=== PATIENT | female | born 1935 | race Caucasian/White ===

== ENCOUNTER 2016-09-23 19:49 | Inpatient (IN) | payer MEDICARE ==
[~2016-09-23] VITALS: Ht 165.1 cm; Wt 71.0 kg
[~2016-09-23 19:49] MED LIST: ASPIRIN81 MG PO; BACTRIM DS1 TAB PO; BAYER ASPIRIN325 MG PO; BENADRYL25 MG PO; BENTYL10 MG PO; CEFEPIME IJ; CEFEPIME1 GM IV; CEFTIN500 MG PO; CELEBREX100 M1 PO; CELEBREX200 MG PO; CEPHALEXIN500 MG PO; CIPROFLOXACIN500 M1 PO; CIPROFLOXACN250 MG PO; CIPROFLOXACN500 MG PO; CLONIDINE0.1 MG PO; COLACE100 MG PO; CRANBERRY1 TA1 PO; DIPHENHYDRAM25 MG PO; ENABLEX15 MG PO; FERR SULFATE325 MG PO; GABAPENTIN300 MG PO; KEFLEX500 M1 PO; LEXAPRO10 MG PO; LISINOPRIL20 MG PO; MECLIZINE25 MG PO; MUCINEX600 MG PO; NITROFURANTN100 MG PO; NORCO1 TA1 PO; NYSTATIN100000 M4 TOP; OMEPRAZOLE40 MG PO; OSCAL 500/1 TAB PO; OXYBUTYNIN10 MG PO; OXYBUTYNIN5 M1 PO; OXYBUTYNIN5 MG PO; OXYCO/APAP1 TA5 PO; PANTOPRAZOLE SO40 MG PO; PHENERGAN12.5 MG/TA PO; PRILOSEC20 MG/CAP PO; PRILOSEC40 MG PO; SERTRALINE HCL50 MG PO; SUPER B COMPLEX1 CAP PO; SYNTHROID75 MCG PO; TORSEMIDE20 M1 PO; TOVIAZ4 MG PO; TRAMADOL HCL50 MG PO; VESICARE5 MG PO; WARFARIN4 MG PO; [UNRECOGNIZED DRUG - OTHER] IJ
[2016-09-23] MEDS ORDERED: CELECOXIB200 MG PO (20:14)
[2016-09-23 20:32] LABS: HEMATOCRIT 34.5 % (37.0-47.0); IMMATURE GRANULOCYTES 0.4 % (0.0-1.0); MEAN CELL VOLUME 89.4 fL CALC (80.0-100.0); MEAN CORPUSCULAR HGB 28.5 pG CALC (26.0-32.0); MEAN CORPUSCULAR HGB CONC 31.9 g/L CALC (32.0-36.0); NEUT# 4.56 thou/uL (2.00-7.15); RED BLOOD COUNT 3.86 mill/uL (4.20-5.60); RED CELL DISTRI WIDTH 13.6 % (11.5-15.5)
[2016-09-23 21:18] LABS: ALBUMIN 3.6 g/dL (3.2-5.0); ALKALINE PHOSPHATASE 120 u/l (38-126); ANION GAP 14 (6-22 (CALC)); BILIRUBIN, TOTAL 0.4 mg/dL (0.0-1.4); BUN 18 mg/dL (8-23); BUN/CREATININE RATIO 16 (12-20 (CALC)); CALCIUM 8.7 mg/dL (8.4-10.2); CARBON DIOXIDE 23 mmol/l (22-30); CHLORIDE 106 mmol/l (95-108); CREATININE 1.2 mg/dL (0.5-1.0); GFR 43 ML/MIN (>=60 (CALC)); GFR FOR AFR.AMER. 52 ML/MIN (>=60 (CALC)); GLUCOSE 106 mg/dL (82-115); POTASSIUM 4.3 mmol/l (3.5-5.1); SGOT/AST 19 u/l (9-36); SGPT/ALT 26 u/l (11-66); SODIUM 138 mmol/l (137-146); TOTAL PROTEIN 7.6 g/dL (6.3-8.2)
[2016-09-23 21:27] LABS: MYOGLOBIN 42 ng/mL (0 - 62)
[2016-09-23 22:20] LABS: URINE BLOOD DIPSTICK LARGE (NEGATIVE); URINE COLOR YELLOW; URINE GLUCOSE - DIPSTICK NEGATIVE (NEGATIVE); URINE KETONE TRACE mg/dL (NEGATIVE); URINE PROTEIN - DIPSTICK >=300 mg/dL (NEG-TRACE)
[2016-09-23 22:28] LABS: URINE BILIRUBIN - DIPSTICK SMALL (NEGATIVE); URINE CLARITY CLOUDY; URINE LEUK ESTERASE MODERATE (NEGATIVE); URINE NITRITE - DIPSTICK POSITIVE (Negative)
[2016-09-23 22:29] LABS: URINE BACTERIA MANY hpf; URINE RBC TNTC RBC/hpf (0-5); URINE SQUAMOUS EPITHELIAL CELL FEW EPI/hpf (0-FEW); URINE WBC TNTC WBC/hpf (0-5)
[2016-09-24 00:37] VITALS: BP 98/65
[2016-09-24 04:32] VITALS: BP 129/69
[2016-09-24 04:44] VITALS: BP 142/90
[2016-09-24 07:22] LABS: HEMATOCRIT 39.6 % (37.0-47.0); HEMOGLOBIN 12.2 g/dl (12.0-16.0); IMMATURE GRANULOCYTES 0.3 % (0.0-1.0); MEAN CELL VOLUME 91.7 fL CALC (80.0-100.0); MEAN CORPUSCULAR HGB 28.2 pG CALC (26.0-32.0); MEAN CORPUSCULAR HGB CONC 30.8 g/L CALC (32.0-36.0); NEUT# 3.67 thou/uL (2.00-7.15); RED BLOOD COUNT 4.32 mill/uL (4.20-5.60); RED CELL DISTRI WIDTH 13.6 % (11.5-15.5)
[2016-09-24 07:39] LABS: BILIRUBIN, TOTAL 0.6 mg/dL (0.0-1.4); CALCIUM 9.1 mg/dL (8.4-10.2); CREATININE 1.2 mg/dL (0.5-1.0); POTASSIUM 4.5 mmol/l (3.5-5.1); TOTAL PROTEIN 8.1 g/dL (6.3-8.2)
[2016-09-24 08:13] VITALS: BP 110/61
[2016-09-24 15:21] VITALS: BP 125/52
[2016-09-24 20:14] VITALS: BP 105/64
[2016-09-25 00:13] VITALS: BP 122/67
[2016-09-25 00:20] VITALS: BP 122/67
[2016-09-25 04:04] VITALS: BP 90/56
[2016-09-25 05:56] LABS: HEMATOCRIT 31.6 % (37.0-47.0); HEMOGLOBIN 10.1 g/dl (12.0-16.0); IMMATURE GRANULOCYTES 1.2 % (0.0-1.0); MEAN CELL VOLUME 89.3 fL CALC (80.0-100.0); MEAN CORPUSCULAR HGB 28.5 pG CALC (26.0-32.0); NEUT# 2.99 thou/uL (2.00-7.15); RED BLOOD COUNT 3.54 mill/uL (4.20-5.60); RED CELL DISTRI WIDTH 13.5 % (11.5-15.5)
[2016-09-25 06:12] LABS: ANION GAP 13 (6-22 (CALC)); BUN 13 mg/dL (8-23); BUN/CREATININE RATIO 13 (12-20 (CALC)); CALCIUM 8.6 mg/dL (8.4-10.2); CARBON DIOXIDE 22 mmol/l (22-30); CHLORIDE 106 mmol/l (95-108); GFR 53 ML/MIN (>=60 (CALC)); GFR FOR AFR.AMER. > 60 ML/MIN (>=60 (CALC)); GLUCOSE 97 mg/dL (82-115); SODIUM 137 mmol/l (137-146)
[2016-09-25 08:55] VITALS: BP 95/45
[2016-09-25 16:30] VITALS: BP 112/70
[2016-09-25 21:02] VITALS: BP 118/77
[2016-09-26 05:10] VITALS: BP 94/57
[2016-09-26 07:28] VITALS: BP 108/67
[2016-09-26 08:07] LABS: HEMATOCRIT 32.2 % (37.0-47.0); HEMOGLOBIN 10.2 g/dl (12.0-16.0); IMMATURE GRANULOCYTES 0.6 % (0.0-1.0); MEAN CELL VOLUME 89.9 fL CALC (80.0-100.0); MEAN CORPUSCULAR HGB 28.5 pG CALC (26.0-32.0); MEAN CORPUSCULAR HGB CONC 31.7 g/L CALC (32.0-36.0); NEUT# 2.81 thou/uL (2.00-7.15); RED BLOOD COUNT 3.58 mill/uL (4.20-5.60); RED CELL DISTRI WIDTH 13.6 % (11.5-15.5)
[2016-09-26 08:13] LABS: ALKALINE PHOSPHATASE 96 u/l (38-126); ANION GAP 12 (6-22 (CALC)); BILIRUBIN, TOTAL 0.3 mg/dL (0.0-1.4); BUN 19 mg/dL (8-23); BUN/CREATININE RATIO 19 (12-20 (CALC)); CALCIUM 8.6 mg/dL (8.4-10.2); CARBON DIOXIDE 24 mmol/l (22-30); CHLORIDE 107 mmol/l (95-108); GFR 53 ML/MIN (>=60 (CALC)); GFR FOR AFR.AMER. > 60 ML/MIN (>=60 (CALC)); GLUCOSE 82 mg/dL (82-115); SGOT/AST 19 u/l (9-36); SGPT/ALT 25 u/l (11-66); SODIUM 139 mmol/l (137-146); TOTAL PROTEIN 6.8 g/dL (6.3-8.2)
[2016-09-26 15:45] VITALS: BP 112/66
[2016-09-26 19:22] VITALS: BP 109/64
[2016-09-27 05:16] VITALS: BP 108/60
[2016-09-27 07:50] VITALS: BP 102/48
[2016-09-27] MEDS ORDERED: ROCEPHIN 1 GM1 GM IV (11:44)
[2016-09-27 14:58] VITALS: BP 101/58
== END 2016-09-27 15:30 | disposition home health service (06) | DRG 699 ==
LOC: ENPENDDIS → ED 19:49 → ED-I 22:15 → ED 23:15 → MS2 23:16
PROVIDERS: Emergency Medicine; ADMIT Internal Medicine Geriatric Medicine; ATTEND Internal Medicine Geriatric Medicine
DX: T83.518A Infection and inflammatory reaction due to other urinary catheter, initial encounter (principal); I69.954 Hemiplegia and hemiparesis following unspecified cerebrovascular disease affecting left non-dominant side; F03.90 Unspecified dementia, unspecified severity, without behavioral disturbance, psychotic disturbance, mood disturbance, and anxiety; N39.0 Urinary tract infection, site not specified; I25.10 Atherosclerotic heart disease of native coronary artery without angina pectoris; I12.9 Hypertensive chronic kidney disease with stage 1 through stage 4 chronic kidney disease, or unspecified chronic kidney disease; N18.9 Chronic kidney disease, unspecified; M62.469 Contracture of muscle, unspecified lower leg; M19.90 Unspecified osteoarthritis, unspecified site; E03.9 Hypothyroidism, unspecified; L89.612 Pressure ulcer of right heel, stage 2; M79.7 Fibromyalgia; K21.9 Gastro-esophageal reflux disease without esophagitis; K29.70 Gastritis, unspecified, without bleeding; K58.9 Irritable bowel syndrome, unspecified; B96.20 Unspecified Escherichia coli [E. coli] as the cause of diseases classified elsewhere; L30.4 Erythema intertrigo; Y84.6 Urinary catheterization as the cause of abnormal reaction of the patient, or of later complication, without mention of misadventure at the time of the procedure; Z87.440 Personal history of urinary (tract) infections

== ENCOUNTER 2017-01-06 15:47 | Inpatient (IN) | payer MEDICARE ==
[~2017-01-06] VITALS: Ht 165.1 cm; Wt 66.7 kg
[~2017-01-06 15:47] MED LIST changes: +CELECOXIB200 MG PO; +ROCEPHIN 1 GM1 GM IV
[2017-01-06 16:00] VITALS: BP 121/66
[2017-01-06 17:53] LABS: HEMATOCRIT 37.6 % (37.0-47.0); HEMOGLOBIN 11.9 g/dl (12.0-16.0); IMMATURE GRANULOCYTES 0.3 % (0.0-1.0); MEAN CORPUSCULAR HGB 28.5 pG CALC (26.0-32.0); MEAN CORPUSCULAR HGB CONC 31.6 g/L CALC (32.0-36.0); NEUT# 4.14 thou/uL (2.00-7.15); RED BLOOD COUNT 4.18 mill/uL (4.20-5.60)
[2017-01-06 18:15] LABS: CALCIUM 8.9 mg/dL (8.4-10.2); CREATININE 1.1 mg/dL (0.5-1.0); POTASSIUM 5.1 mmol/l (3.5-5.1)
[2017-01-06 19:50] VITALS: BP 114/67
[2017-01-07 04:52] VITALS: BP 123/66
[2017-01-07 05:27] LABS: URINE BILIRUBIN - DIPSTICK NEGATIVE (NEGATIVE); URINE BLOOD DIPSTICK LARGE (NEGATIVE); URINE CLARITY CLOUDY; URINE COLOR YELLOW; URINE GLUCOSE - DIPSTICK NEGATIVE (NEGATIVE); URINE KETONE NEGATIVE (NEGATIVE); URINE PH 8.5 (4.5-8.0); URINE PROTEIN - DIPSTICK 100 mg/dL (NEG-TRACE); URINE SPECIFIC GRAVITY 1.015
[2017-01-07 05:40] LABS: ALBUMIN 3.4 g/dL (3.2-5.0); BILIRUBIN, TOTAL 0.8 mg/dL (0.0-1.4); CALCIUM 8.9 mg/dL (8.4-10.2); CREATININE 1.1 mg/dL (0.5-1.0); POTASSIUM 4.4 mmol/l (3.5-5.1)
[2017-01-07 05:46] LABS: URINE LEUK ESTERASE MODERATE (NEGATIVE); URINE NITRITE - DIPSTICK POSITIVE (Negative); URINE WBC 20-50 WBC/hpf (0-5)
[2017-01-07 05:47] LABS: URINE BACTERIA MODERATE hpf
[2017-01-07 07:45] VITALS: BP 112/68
[2017-01-07 16:00] VITALS: BP 135/80
[2017-01-07 19:25] VITALS: BP 124/69
[2017-01-08 04:50] VITALS: BP 117/66
[2017-01-08 05:55] LABS: HEMATOCRIT 34.6 % (37.0-47.0); HEMOGLOBIN 10.9 g/dl (12.0-16.0); IMMATURE GRANULOCYTES 0.5 % (0.0-1.0); MEAN CELL VOLUME 89.4 fL CALC (80.0-100.0); MEAN CORPUSCULAR HGB 28.2 pG CALC (26.0-32.0); MEAN CORPUSCULAR HGB CONC 31.5 g/L CALC (32.0-36.0); NEUT# 3.08 thou/uL (2.00-7.15); RED BLOOD COUNT 3.87 mill/uL (4.20-5.60); RED CELL DISTRI WIDTH 13.9 % (11.5-15.5)
[2017-01-08 05:56] LABS: ALKALINE PHOSPHATASE 120 u/l (38-126); ANION GAP 11 (6-22 (CALC)); BILIRUBIN, TOTAL 0.7 mg/dL (0.0-1.4); BUN 12 mg/dL (8-23); BUN/CREATININE RATIO 13 (12-20 (CALC)); CALCIUM 8.7 mg/dL (8.4-10.2); CARBON DIOXIDE 23 mmol/l (22-30); CHLORIDE 109 mmol/l (95-108); GFR 53 ML/MIN (>=60 (CALC)); GFR FOR AFR.AMER. > 60 ML/MIN (>=60 (CALC)); GLUCOSE 110 mg/dL (82-115); POTASSIUM 4.1 mmol/l (3.5-5.1); SGOT/AST 35 u/l (9-36); SGPT/ALT 27 u/l (11-66); SODIUM 139 mmol/l (137-146); TOTAL PROTEIN 6.5 g/dL (6.3-8.2)
[2017-01-08 07:40] VITALS: BP 92/71
== END 2017-01-08 13:14 | disposition home health service (06) | DRG 699 ==
LOC: MS2 15:47
PROVIDERS: ADMIT Internal Medicine Geriatric Medicine; ATTEND Internal Medicine Geriatric Medicine
DX: T83.511A Infection and inflammatory reaction due to indwelling urethral catheter, initial encounter (principal); I69.951 Hemiplegia and hemiparesis following unspecified cerebrovascular disease affecting right dominant side; F03.90 Unspecified dementia, unspecified severity, without behavioral disturbance, psychotic disturbance, mood disturbance, and anxiety; I48.91 Unspecified atrial fibrillation; I12.9 Hypertensive chronic kidney disease with stage 1 through stage 4 chronic kidney disease, or unspecified chronic kidney disease; N18.9 Chronic kidney disease, unspecified; I25.10 Atherosclerotic heart disease of native coronary artery without angina pectoris; K21.9 Gastro-esophageal reflux disease without esophagitis; K29.70 Gastritis, unspecified, without bleeding; K58.9 Irritable bowel syndrome, unspecified; M79.7 Fibromyalgia; M19.90 Unspecified osteoarthritis, unspecified site; E03.9 Hypothyroidism, unspecified; M81.0 Age-related osteoporosis without current pathological fracture; L98.8 Other specified disorders of the skin and subcutaneous tissue; B95.2 Enterococcus as the cause of diseases classified elsewhere; Y84.6 Urinary catheterization as the cause of abnormal reaction of the patient, or of later complication, without mention of misadventure at the time of the procedure; Z87.440 Personal history of urinary (tract) infections

== ENCOUNTER 2017-03-02 07:29 | Day surgery (SDC) | payer MEDICARE ==
[~2017-03-02] VITALS: Ht 165.1 cm; Wt 81.2 kg
[~2017-03-02 07:29] MED LIST changes: +LEVOTHYROXIN75 MC1 PO
[2017-03-02] MEDS ORDERED: KEFLEX500 MG PO (11:19)
[2017-03-02] MEDS ORDERED: NORCO1 TA2 PO (11:19)
[2017-03-02 13:24] VITALS: BP 98/58
== END 2017-03-02 11:55 | disposition home health service (06) ==
LOC: ORM 07:29
PROVIDERS: ATTEND Urology
PROC: 0T9B00Z Drainage of Bladder with Drainage Device, Open Approach (ICD-10-PCS; principal; 2017-03-02)
DX: R32 Unspecified urinary incontinence (principal); I69.954 Hemiplegia and hemiparesis following unspecified cerebrovascular disease affecting left non-dominant side; M06.9 Rheumatoid arthritis, unspecified; N30.80 Other cystitis without hematuria; F41.9 Anxiety disorder, unspecified; R33.9 Retention of urine, unspecified; I25.10 Atherosclerotic heart disease of native coronary artery without angina pectoris; K21.9 Gastro-esophageal reflux disease without esophagitis; F32.9 Major depressive disorder, single episode, unspecified; E03.9 Hypothyroidism, unspecified; K58.9 Irritable bowel syndrome, unspecified; Z99.3 Dependence on wheelchair; Z87.440 Personal history of urinary (tract) infections

== ENCOUNTER 2018-05-08 11:28 | Inpatient (IN) | payer MEDICARE ==
[~2018-05-08] VITALS: Ht 157.5 cm; Wt 36.9 kg
[~2018-05-08 11:28] MED LIST changes: +KEFLEX500 MG PO; +NORCO1 TA2 PO
--- NOTE | 2018-05-08 11:45 | NUR ---
PT IS A DIRECT ADMIT CAME VIA WHEELCHAIR BY FAMILY. RESULTS TECHNICIAN IN ROOM TO OBTAIN VS.
[2018-05-08 11:50] VITALS: BP 93/60
--- NOTE | 2018-05-08 12:35 | NUR ---
DAUGHTER IN ROOM ASSISTED WITH PART A QUESTIONS. PT IS MUTE AT THIS TIME. DAUGHTER STATED THAT ONLY AT TIMES SHE MIGHT SAY YES. PT HAS A LEFT ARM SKIN TEAR. VELÁZQUEZ IN PLACE WITH DARK URINE CLOUDY. O2 VIA NC 3L. CALL LIGHT IN REACH.
[2018-05-08 13:51] LABS: ANION GAP 13 (6-22 (CALC)); BUN 18 mg/dL (8-23); BUN/CREATININE RATIO 24 (12-20 (CALC)); CARBON DIOXIDE 25 mmol/l (22-30); CHLORIDE 100 mmol/l (95-108); CREATININE 0.7 mg/dL (0.5-1.0); GFR > 60 ML/MIN (>=60 (CALC)); GFR FOR AFR.AMER. > 60 ML/MIN (>=60 (CALC)); POTASSIUM 4.6 mmol/l (3.5-5.1)
[2018-05-08 13:52] LABS: SODIUM 133 mmol/l (137-146)
[2018-05-08 14:09] LABS: URINE BLOOD DIPSTICK LARGE (NEGATIVE); URINE COLOR BROWN; URINE GLUCOSE - DIPSTICK NEGATIVE (NEGATIVE); URINE KETONE 15 mg/dL (NEGATIVE); URINE PROTEIN - DIPSTICK >=300 mg/dL (NEG-TRACE)
[2018-05-08 14:10] LABS: HEMATOCRIT 36.7 % (37.0-47.0); HEMOGLOBIN 11.7 g/dl (12.0-16.0); IMMATURE GRANULOCYTES 0.8 % (0.0-5.0); MEAN CELL VOLUME 89.7 fL CALC (80.0-100.0); MEAN CORPUSCULAR HGB 28.6 pG CALC (26.0-32.0); MEAN CORPUSCULAR HGB CONC 31.9 g/L CALC (32.0-36.0); NEUT# 3.86 thou/uL (2.00-7.15); RED BLOOD COUNT 4.09 mill/uL (4.20-5.60)
[2018-05-08 14:10] LABS: URINE LEUK ESTERASE MODERATE (NEGATIVE); URINE NITRITE - DIPSTICK POSITIVE (Negative)
[2018-05-08 14:12] LABS: URINE BILIRUBIN - DIPSTICK NEGATIVE (NEGATIVE)
[2018-05-08 14:13] LABS: URINE BACTERIA MANY hpf; URINE RBC 25-50 RBC/hpf (0-5); URINE WBC TNTC WBC/hpf (0-5)
--- NOTE | 2018-05-08 14:40 | NUR ---
NOTIFIED DR. EUGENE THAT WE ARE NOT ABLE TO START IV SITE. SEVERAL NURSE TRIED. ORDERS RECEIVED AT THIS TIME FOR A MIDLINE.
[2018-05-08 15:40] VITALS: BP 107/50
--- NOTE | 2018-05-08 15:54 | NUR ---
CALLED DR. PITTMAN RE: NO ONE IS AVAILABLE TO DO A MIDLINE LINE. STATED TO START IJ IV SITE AND CALL ER.
--- NOTE | 2018-05-08 16:16 | NUR ---
DIOMEDESRN AT BEDSIDE TO INSERT IJ SITE. DIOMEDES STATED UNABLE TO OBTAIN THE IV SITE. FAMILY IN ROOM. CALL DR. EUGENE RE: NO IV SITE.
--- NOTE | 2018-05-08 17:05 | NUR ---
DR. BLACK AT BEDSIDE. NOTIFIED DR. EUGENE THAT WE ARE NOT ABLE TO GET A IV SITE. STATED START THE IV IN THE LEG. 22 RIGHT LEG STARTED BY EPIC MANAGER. FAMILY IN ROOM. CALL LIGHT IN REACH.
[2018-05-08 19:10] VITALS: BP 90/55
--- NOTE | 2018-05-08 19:15 | NUR ---
REPORT RECIEVED FROM JILLIAN CR. TPT RESTING IN BED. NO SIGNS OR SYMPTOMS OF DISTRESS. WILL CONTINUE TO MONITOR.
--- NOTE | 2018-05-08 21:00 | NUR ---
PT RESTING IN BED. ASSISTED ANTONIA KOO TO CLEAN UP PT AFTER SMALL LOOSE BM. ASSESSED PT SKIN, REDNESS NOTED ON THE INNER RIGHT KNEE, DUODERM ON THE INNER LEFT KNEE, SMALL SKIN TEAR ON THE LEFT ARM NO DRAINAGE. IV # 22 RIGHT LEG, APPEARS HEALTHY, PATENT, INFUSIING D5 1/2. SAFETY PRECAUTIONS IN PLACE. WILL CONTINUE TO MONITOR.
--- NOTE | 2018-05-09 00:37 | NUR ---
PT RESTING IN BED. RESPIRATIONS EVEN AND UNLABORED ON O2 VIA NC. VELÁZQUEZ DRAINING TO GRAVITY. SAFETY PRECAUTIONS IN PLACE. WILL CONTINUE TO MONITOR.
--- NOTE | 2018-05-09 04:00 | NUR ---
PT RESTING IN BED. NO SIGNS OR SYMPTOMS OF DISTRESS. SAFETY PRECAUTIONS IN PLACE. WILL CONTINUE TO MONITOR.
[2018-05-09 04:17] VITALS: BP 87/49
[2018-05-09 05:45] LABS: ALBUMIN 2.5 g/dL (3.2-5.0); ALKALINE PHOSPHATASE 93 u/l (38-126); ANION GAP 11 (6-22 (CALC)); BILIRUBIN, TOTAL 0.4 mg/dL (0.0-1.4); BUN 16 mg/dL (8-23); BUN/CREATININE RATIO 22 (12-20 (CALC)); CARBON DIOXIDE 24 mmol/l (22-30); CHLORIDE 101 mmol/l (95-108); CREATININE 0.8 mg/dL (0.5-1.0); GFR > 60 ML/MIN (>=60 (CALC)); GFR FOR AFR.AMER. > 60 ML/MIN (>=60 (CALC)); POTASSIUM 4.2 mmol/l (3.5-5.1); SGOT/AST 19 u/l (9-36); SODIUM 133 mmol/l (137-146); TOTAL PROTEIN 6.2 g/dL (6.3-8.2)
--- NOTE | 2018-05-09 07:00 | NUR ---
REPORT RECEIVED FROM MICHAEL. PT IS SLEEPING IN BED WITH NO S/S OF DISTRESS NOTED.
[2018-05-09 07:21] VITALS: BP 83/47
--- NOTE | 2018-05-09 08:26 | NUR ---
DR. EUGENE IN ROOM TO DISCUSS POC WITH PT SON. ASSESSMENT DONE. PT IS ON HER RIGHT SIDE. VELÁZQUEZ IS PATENT WITH TEA COLOR URINE. D51/2NS ON RIGHT LEG INFUSING WELL. DAX SKIN TEARS IN ARMS. PT IS MUTE AT THIS TIME. CALL LIGHT IN REACH.
--- NOTE | 2018-05-09 08:37 | NUR ---
NURSE PLACED ORDER FOR AIR MATTRESS FOR PT. INSULATING MACHINE OPERATOR CONTACTED [facility] AND SPOKE TO LOUIS WHICH HE TOOK THE INFORMATION DOWN ON PT. INSULATING MACHINE OPERATOR ALSO TOLD LOUIS TO HAVE DIESEL MAINTENANCE TECHNICIAN CALL WITH AN ETA ON MATTRESS. LOUIS GAVE CONFIRMATION NUMBER ON A P500 MATTRESS TO INSULATING MACHINE OPERATOR WHICH IS [id number].
[2018-05-09 10:01] VITALS: BP 90/50
--- NOTE | 2018-05-09 10:10 | NUR ---
[facility] DONE AND TURN PT TO HER RIGHT SIDE AND ENCOURAGE PO FLUIDS. PT REFUSING. CALL DR. EUGENE THAT CHERYLE STATED UNABLE TO INSERT A LINE DUE TO PT HAS SMALL VESSELS. NO NEW ORDERS RECEIVED AT THIS TIME.
--- NOTE | 2018-05-09 12:10 | NUR ---
AIR MATTRESS IN PLACE AT THIS TIME. NO S/S OF DISTRESS NOTED ON PT. ENCOURAGE APPLE JUICE AND PUDDING BUT PT DOES NOT WANT TO OPEN MOUTH.
--- NOTE | 2018-05-09 15:52 | NUR ---
PT IS RESTING IN BED ON HER LEFT SIDE WITH NO S/S OF DISTRESS NOTED. FAMILY IN ROOM TO ENCOURAGE PT TO EAT. CALL LIGHT IN REACH.
[2018-05-09 16:56] VITALS: BP 104/50
--- NOTE | 2018-05-09 18:00 | NUR ---
NOTIFIED DR. EUGENE THAT THE SUPRAPUBIC VELÁZQUEZ IS LEAKING THAT PT HAD HER PAD WITH MODREATED URINE WET. STATED TO CHANGE THE VELÁZQUEZ.
--- NOTE | 2018-05-09 18:40 | NUR ---
IN TO REPLACE SUPRA-PUB CATH PER ORDER. OLD CATH REMOVED /c 20mls OUT. #24 SUPRA-PUB INSERTED UNDER sales account specialist. FERNIE WALSH IN TO ASSIST. WELL TOLERATED PROCEDURE.
--- NOTE | 2018-05-09 19:08 | NUR ---
REPORT FROM SHAYE WALSH. PT RESTING IN BED. OPENS EYES TO STIMULI. RESPIRATIONS EVEN AND UNLABORED. NO S/S OF PAIN OR DISCOMFORT NOTED. IV SITE APPEARS HEALTHY. IVT INFUSING WITHOUT DIFFICULTY. SUPRAPUBIC IN PLACE NO URINE NOTED IN BAG OR TUBE AT THIS TIME. CALL LIGHT WITHIN REACH. WILL CONTINUE TO MONITOR.
[2018-05-09 20:00] VITALS: BP 81/46
--- NOTE | 2018-05-09 22:30 | NUR ---
PT RESTING IN BED WITH EYES CLOSED. PT OPENS EYES TO VERBAL STIMULI. CLOUDY STRAW COLORED URINE NOTED DRAINING TO GRAIVITY FROM SUPRAPUBIC. IV FLUIDS INFUSING. IV SITE APPEARS HEALTHY. NO S/S OF PAIN OR DISCOMFORT NOTED. ATTEMPTED TO REPOSITION PT WITH OUT SUCCESS. WILL CONTINUE TO MONITOR.
--- NOTE | 2018-05-10 02:12 | NUR ---
PT RESTING IN BED WITH EYES CLOSED. NO S/S OF PAIN OR DISCOMFORT NOTED. IV FLUIDS INFUSING WITHOUT DIFFICULTY. SUPRAPUBIC PATENT AND DRAINING. CALL LIGHT WITHIN REACH. WILL CONTINUE TO MONITOR.
[2018-05-10 04:35] VITALS: BP 83/46
[2018-05-10 05:18] LABS: HEMOGLOBIN 9.9 g/dl (12.0-16.0); IMMATURE GRANULOCYTES 0.6 % (0.0-5.0); MEAN CELL VOLUME 90.6 fL CALC (80.0-100.0); MEAN CORPUSCULAR HGB 28.9 pG CALC (26.0-32.0); MEAN CORPUSCULAR HGB CONC 31.9 g/L CALC (32.0-36.0); NEUT# 2.13 thou/uL (2.00-7.15); RED BLOOD COUNT 3.42 mill/uL (4.20-5.60); RED CELL DISTRI WIDTH 15.9 % (11.5-15.5)
[2018-05-10 05:36] LABS: ANION GAP 11 (6-22 (CALC)); BUN 12 mg/dL (8-23); BUN/CREATININE RATIO 20 (12-20 (CALC)); CARBON DIOXIDE 20 mmol/l (22-30); CHLORIDE 106 mmol/l (95-108); CREATININE 0.6 mg/dL (0.5-1.0); GFR > 60 ML/MIN (>=60 (CALC)); GFR FOR AFR.AMER. > 60 ML/MIN (>=60 (CALC)); POTASSIUM 3.8 mmol/l (3.5-5.1); SODIUM 133 mmol/l (137-146)
--- NOTE | 2018-05-10 06:15 | NUR ---
BED BATH PROVIDED. LINENS CHANGED. PT REPOSITIONED IN BED WITH PILLOWS. IV SITE APPEARS HEALTHY. SUPRAPUBIC DRAINING TO GRAVITY. CALL LIGHT WITHIN REACH. WILL CONTINUE TO MONITOR.
--- NOTE | 2018-05-10 08:00 | NUR ---
REPORT RECEIVED FROM SHRUTHI JOSÉ. PT OF LEFT SIDE IN BED. SLEEPING. ALL LIMBS CONTRACTED INTO FETEAL POSITION. PILLOWS BETWEEN LEGS AND UNDER BONY PROMINENCES. AIR MATTRESS IN PLACE. IVS #22 RLL, NO REDNESS, SWELLING. INFUSING W/O DIFFICULTY. BLADDER LEAKAGE NOTED. PT. CLEANED, LINENS CHANGED. SUPRAPUBLIC CATHETER DRAINING CLOUDY THICK, YELLOW URINE ALSO.
[2018-05-10 08:11] VITALS: BP 97/38
--- NOTE | 2018-05-10 08:30 | NUR ---
DR. EUGENE IN TO SEE PT. ORDER TO FEED/ OFFER INTAKE Q 2 HRS GIVEN.
--- NOTE | 2018-05-10 09:00 | NUR ---
ATTEMPTED TO FEED PT. UNABLE TO USE STRAW. SYRINGE ATTEMPTED. LIQUID RUNNING FROM CORNER OF MOUTH. PT. REFUSING TO SWALLOW OR OPEN MOUTH.
--- NOTE | 2018-05-10 11:37 | NUR ---
STAFF ATTEMPTED TO FEED PT. LIQUIDS VIA STRAW. PT. CLINCHING MOUTH CLOSED, REFUSING TO OPEN LIPS. MOUTH CARE ALSO ATTEMPTED AT THIS TIME.
--- NOTE | 2018-05-10 13:00 | NUR ---
"GURGLING" REPORTED BY FAMILY. LUNGS SOUNDS STILL CLEAR. FLUIDS APPEAR TO BE IN MOUTH. PT REFUSING TO OPEN MOUTH FOR YANKEUR SUYCTION. DR. EUGENE NOTIFIED, ORDER FOR RT TO SUCTION PRN. HOB TO REMAIN ELEVATED.
[2018-05-10 15:23] VITALS: BP 95/55
--- NOTE | 2018-05-10 16:54 | NUR ---
PT ON RIGHT SIDE IN BED. STILL REFUSING PO INTAKE. NONVERBAL. FAMILY AT BEDSIDE.
[2018-05-10 19:10] VITALS: BP 68/32
--- NOTE | 2018-05-10 19:40 | NUR ---
PT ASSESSED AT THIS TIME AND REPOSITIONED. NO S/O DISTRESS, PT NOT COMMUNITCATING W/ME AT THIS TIME. REDNESS TO INNER KNEE/PILLOWS PLACED, AIR MATTRESS IN PLACE, STOOL HAS BEEN REPORTED TO BE LAST ON THE 6TH, ABD SOFT APPEARING TO BE NON-TENDER W/HYPO BOWEL SOUNDS, LUNGS ARE DIM/CLEAR. PT SCHEDULED FOR Q2 TURNS/ALARM IN PLACE. WILL CONTINUE TO MONITOR.
--- NOTE | 2018-05-11 01:00 | NUR ---
PT IS IN BED CURLED ON RIGHT SIDE SLEEPING. DID NOT AWAKE TO MY BEING IN THE ROOM. NO S/O DISTRESS NOTED AT THIS TIME. WILL CONTINUE TO MONITOR.
--- NOTE | 2018-05-11 03:30 | NUR ---
PT PROVIDED COMPLETE BEDBATH, PT HAS SKIN TEARS ON ARMS, ELBOWS, AREAS DRESSED FOR SMALL AMOUNTS OF BLEEDING. IV SITE IN LEFT LOWER LEG APPEARS HEALTHY, FLUIDS ARE RUNNING ORDERS PROVIDE. PT HAS REDDENED AREAS TO BONY PROMINENCES, BUT HAS BEEN TURNED Q2 THIS SHIFT. WILL ATTEMPT TO INCREASE TURNS AND PILLOWS HAVE BEEN PLACED IN ALL PREASSURE AREAS POSSIBLE, PT IS ON AN AIR BED. WILL CONTINUE TO MONITOR PT.
[2018-05-11 04:05] VITALS: BP 70/38
--- NOTE | 2018-05-11 07:31 | NUR ---
FURNITURE ASSEMBLY SUPERVISOR STATED THAT SON DOES NOT WANT HIS MOM TO BE DRAW FOR LABS .HE WANTS TO WAIT FOR DOCTOR TO COME.
--- NOTE | 2018-05-11 08:40 | NUR ---
ASSESSMENT DONE. PT IS SLEEPING WITH NO S/S OF DISTRESS NOTED. D51/2NS 120 INFUSING WELL. VELÁZQUEZ IS PATENT WITH TEA COLOR URINE. PER SON REQUEST HE DOES NOT WANT HIS MOM TO BE TURN Q2H.
[2018-05-11 09:00] VITALS: BP 148/71
--- NOTE | 2018-05-11 11:45 | NUR ---
TAMI FROM CB CALLED STATED THAT A NURSE SHOULD BE COMING AROUND 2PM. PT IS RESTING ON HER RIGHT SIDE WITH NO S/S OF DISTRESS NOTED. NOTIFIED SON RE: CB SON VERBALIZED UNDERSTANDING.
== END 2018-05-11 14:29 | disposition hospice, inpatient (51) | DRG 690 ==
LOC: MS2 11:28
PROVIDERS: ADMIT Internal Medicine Geriatric Medicine; ATTEND Internal Medicine Geriatric Medicine
PROC: 0T2BX0Z Change Drainage Device in Bladder, External Approach (ICD-10-PCS; principal; 2018-05-09)
DX: N39.0 Urinary tract infection, site not specified (principal); Z68.1 Body mass index [BMI] 19.9 or less, adult; E86.0 Dehydration; R62.7 Adult failure to thrive; I12.9 Hypertensive chronic kidney disease with stage 1 through stage 4 chronic kidney disease, or unspecified chronic kidney disease; N18.9 Chronic kidney disease, unspecified; M19.90 Unspecified osteoarthritis, unspecified site; I25.10 Atherosclerotic heart disease of native coronary artery without angina pectoris; F03.90 Unspecified dementia, unspecified severity, without behavioral disturbance, psychotic disturbance, mood disturbance, and anxiety; L98.9 Disorder of the skin and subcutaneous tissue, unspecified; M06.9 Rheumatoid arthritis, unspecified; M24.50 Contracture, unspecified joint; B96.20 Unspecified Escherichia coli [E. coli] as the cause of diseases classified elsewhere; Z66 Do not resuscitate; Z51.5 Encounter for palliative care; Z86.73 Personal history of transient ischemic attack (TIA), and cerebral infarction without residual deficits
CPT/HCPCS: G0378; G0379

== ENCOUNTER 2018-05-11 15:30 | Inpatient (IN) | payer OTHER ==
[~2018-05-11] VITALS: Ht 157.5 cm; Wt 36.9 kg
--- NOTE | 2018-05-11 14:15 | NUR ---
ED KNUTSON AT BEDSIDE TO SPEAK WITH FAMILY RE: POC.
[2018-05-11 16:00] VITALS: BP 84/31
--- NOTE | 2018-05-11 16:00 | NUR ---
PT IS RESTING IN BED WITH NO S/S OF DISTRESS NOTED. FAMILY IN ROOM. PT IS ADMIT IN-HOUSE HOSPICE. RE: TO PREVIOUS CHARTING.
--- NOTE | 2018-05-11 19:25 | NUR ---
AIDE IS IN W/PT OBTAINING V/S, PT OPENED HER EYES AND MADE EYE CONTACT, BUT DID NOT SPEAK. NO S/O DISTRESS AT THIS TIME. PT APPEARS RESTFULL. FAMILY MEMBER IS AT BEDSIDE. I ENCOURAGED HER TO CALL US IF ANY NEEDS ARISE. WE WILL CONTINUE TO MONITOR PT.
[2018-05-11 19:50] VITALS: BP 73/38
--- NOTE | 2018-05-12 00:15 | NUR ---
PT IS IN BED, APPEARS PEACEFUL, POSITIONED W/PILLOWS FOR COMFORT, EYES REMAINED CLOSED. LUNG SOUNDS CLEAR, HR68,R20. DAUGHTER IS AT BEDSIDE ASLEEP ON ROLL-AWAY BED. WILL CONTINUE TO MONITOR.
[2018-05-12 04:20] VITALS: BP 59/39
--- NOTE | 2018-05-12 04:50 | NUR ---
PT IS IN BED W/EYES CLOSED. BREATHING SHALLOW NON-LABORED, NO S/O DISTRESS. FAMILY ASLEEP AT BEDSIDE.
--- NOTE | 2018-05-12 08:20 | NUR ---
SHIFT CHANGE REPORT, PT IN [id number] POSITION, O2 @ 2L VIA NC IN PLACE, BREATHING EVEN AND NON LABORED, DOES NOT RESPOND TO VERBAL/TACTILE STIMULI, EYES CLOSED, DOES NOT APPEAR TO BE IN DISTRESS, FAMILY AT BEDSIDE, CALL PÉREZ IN REACH.
--- NOTE | 2018-05-12 11:09 | NUR ---
RESTING/SLEEPING, FAMILY AT BEDSIDE AND REQUESTING TO REPOSITION ONLY NEEDED, TO STOP BRINGING MEALS, DIETARY NOTIFIED.
[2018-05-12 13:19] VITALS: BP 76/39
[2018-05-12 15:15] VITALS: BP 80/37
--- NOTE | 2018-05-12 17:04 | NUR ---
REPOSITIONED, MENTATION REMAINS UNCHANGED, UNRESPONSIVE WITH EVEN NON-LABORED BRATHING, FAMILY AT BEDSIDE.
[2018-05-12 19:00] VITALS: BP 76/42
--- NOTE | 2018-05-12 19:25 | NUR ---
REPORT RECEIVED FROM JILLIAN POP. PT RESTING IN BED WITH EYES CLOSED ON RT SIDE, FAMILY AT BEDSIDE. RESPIRATIONS SHALLOW, NON-LABORED ON O2 VIA NC @ 2L. SAFETY PRECAUTIONS IN PLACE WILL, CONTINUE TO MONITOR.
--- NOTE | 2018-05-13 00:15 | NUR ---
PT RESTING IN BED EYES CLOSED, FAMILY AT BEDSIDE. NO SIGNS OF DISTRESS AT THIS TIME. WILL CONTINUE TO MONITOR.
[2018-05-13 04:10] VITALS: BP 80/49
--- NOTE | 2018-05-13 04:22 | NUR ---
PT MEDICATED WITH PRN MORPHINE 2MG IV PER EMAR. PTS BP AND HEART RATE SLIGHTLY ELIVATED FROM PREVIOUS SET OF VITALS, PT LEGS TWITCHING. PT TO BE REPOSITIONED. DISCUSSED VITALS WITH PT FAMILY AT BEDSIDE AND PLAN TO MEDICATE AND REPOSITION PT, FAMILY MEMBER AGREED WITH PLAN.
--- NOTE | 2018-05-13 07:05 | NUR ---
PT REPORT RECIEVED FROM JILLIAN RODRIGUEZ. PT SLEEPING. NO S/S OF DISTRESS. CALL LIGHT IN REACH. WILL CONTINUE TO MONITOR.
[2018-05-13 07:27] VITALS: BP 77/42
--- NOTE | 2018-05-13 07:27 | NUR ---
PT ASLEEP IN BED. VS DONE. PT NONVERBAL. RESP EVEN AND UNLABORED. LUNG SOUNDS DIMINISHED. 02 @2L ON PT. BOWEL SOUNDS HYPO ACTIVE. WEAK RADIAL AND PEDAL PULSES. #22 RL SL. FLUSHED AND PATENT. SITE APPEARS HEALTHY. PT HAS A SUPRAPUBIC CATHETER DRAINING THCIK GREYISH URINE; FOUL SMELL NOTED. NO FURTHER NEEDS AT THIS TIME. CALL LIGHT IN REACH. WILL CONTINUE TO MONITOR.
--- NOTE | 2018-05-13 11:50 | NUR ---
PT RESTING IN BED. MEDICATED W/ 2 MG MORPHINE IV FOR COMFORT. REPOSITIONED IN BED. FAMILY DENIES ANY NEEDS AT THIS TIME. CALL LIGHT IN REACH. WILL CONTINUE TO MONITOR.
[2018-05-13 19:26] VITALS: BP 64/34
--- NOTE | 2018-05-13 23:00 | NUR ---
PT RESTING IN BED WITH EYES CLOSED. DAUGHTER AT BEDSIDE. PLAN TO GIVE PT A BED BATH AND REPOSITION DISCUSSED WITH DAUGHTER. PT GIVEN BED BATH AND REPOSITIONED. PT MEDICATED PRIOR TO BEING REPOSITIONED TO PROVIDE COMFORT. SAFETY PRECAUTIONS IN PLACE. WILL CONTINUE TO MONITOR.
--- NOTE | 2018-05-13 23:09 | NUR ---
REPORT RECEIVED FROM SHRUTHI CALI. PT RESTING IN BED WITH EYES CLOSED, FAMILY AT BEDSIDE. RESPIRATIONS SHALLOW ON O2 VIA NC @ 2L. SAFETY PRECAUTIONS IN PLACE. WILL CONTINUE TO MONITOR.
--- NOTE | 2018-05-14 00:30 | NUR ---
PT RESTING IN BED. RESPIRATIONS EVEN AND UNLABORED ON O2 VIA NS @ 2L. SAFETY PRECAUTIONS IN PLACE. WILL CONTINUE TO MONITOR.
--- NOTE | 2018-05-14 04:00 | NUR ---
PT RESTING IN BED DAUGHTER AT BEDSIDE. NO SIGNS OR SYM[PTOMS OF DISTRESS. WILL CONTINUE TO MONITOR
[2018-05-14 04:33] VITALS: BP 66/43
--- NOTE | 2018-05-14 07:36 | NUR ---
REPORT RECEIVED FROM JILLIAN RODRIGUEZ; PT APPEARS TO BE SLEEPING ON HER R SIDE; FAMILY MEMBER AT BEDSIDE; WILL CONTINUE TO MONITOR.
--- NOTE | 2018-05-14 09:50 | NUR ---
ENTERED ROOM, EXPLAINED TO PT'S SON THAT I WILL BE MEDICATING PT, HE STATED "NO SHE DOES NOT NEED ANY PAIN MED'S, SHE'S FINE" EXPLAINED PT'S NOT ABLE TO VERBALIZE; HE STATED AGAIN "SHE'S FINE AND DOES NOT DO WELL WITH MEDS" HE LATER CAME TO DESK STATED "I SPOKE WITH MY SISTER AND SHE SAID IT'S OK TO GIVE HER PAIN MEDICATION" (DONE)
--- NOTE | 2018-05-14 10:25 | NUR ---
HOSPICE AT BEDSIDE
--- NOTE | 2018-05-14 10:46 | NUR ---
DAVID/HOSPICE IS AT BEDSIDE
--- NOTE | 2018-05-14 16:00 | NUR ---
PT RESTING IN BED WITH EYES CLOSED; NO DISTRESS NOTED; VELÁZQUEZ DRAINING TO GRAVITY, THICK, CLOUDY URINE; READJUST PILLOWS; LEGS ELEVATED ON PILLOW; FAMILY AT BEDSIDE.
--- NOTE | 2018-05-14 19:00 | NUR ---
Received report from nurse Newman, pt resting in bed, no discomforts noted at this time, daughter with patient. call light at reach.
--- NOTE | 2018-05-14 20:00 | NUR ---
Patient resting in bed, repositioned, on O2 @2lpm via nc, with even shallow breathing, daughter in room, no discomforts noted at this time.
[2018-05-14 22:00] VITALS: BP 66/31
--- NOTE | 2018-05-15 00:10 | NUR ---
Dressing on the suprapubic catheter changed, patient repositioned, resting in bed, comfortable no discomforts noted.
--- NOTE | 2018-05-15 04:46 | NUR ---
Patient comfortably resting in bed, patient repositioned, daughter in room, even shallow breathing call light at reach.
[2018-05-15 07:41] VITALS: BP 68/36
--- NOTE | 2018-05-15 07:41 | NUR ---
PT IS RESTIGN WITH EYES CLOSED, FAMILY IN THE ROOM. IV SITE IS FREE FROM REDNESS OR EDEMA. HR IS REG,PULSES ARE STRONG X4, ABD IS SOFT WITH ACTIVE BS. VELÁZQUEZ INTACT DRAINING SMALL AMOUNT OF URINE. CONTINUE TO OSEBRVE AND MONITOR. PT HAS +2 PITTING EDEMA NOTED ON LEFT FOOT.
--- NOTE | 2018-05-15 12:00 | NUR ---
PT IS RESTING IN BED WITH EYES CLOSED. NO DISTRESS NOTED. FAMILY AT BEDSIDE. IV SITE IS FREE FROM REDNESS OR EDMEA.
--- NOTE | 2018-05-15 15:41 | NUR ---
social work faculty member in to visit with pt. and family. for hospice. possibly send to the hospice house.
[2018-05-15 16:00] VITALS: BP 64/49
--- NOTE | 2018-05-15 16:00 | NUR ---
PT IS RESTING WITH EYES CLOSED. IV SITE IS FREE FROM REDNESS OR EDEMA. CONTINUE TO OSBERVE AND MONITOR. FAMILY IN THE ROOM.
[2018-05-15 19:10] VITALS: BP 60/38
--- NOTE | 2018-05-15 19:21 | NUR ---
RECEIVED REPORT FROM NURSE POLLARD, PATIENT CURRENTLY RESTING IN BED, REMAINS ON 02 AT 2LPM, WITH EVEN SHALLOW BREATHING. DAUGHTER IN ROOM, CALL LIGHT AT REACH
--- NOTE | 2018-05-15 21:05 | NUR ---
SPOKE TO DELISA FROM [facility], STATED SHE WILL COME TONIGHT TO ASSESS PATIENT.
--- NOTE | 2018-05-15 22:15 | NUR ---
HOSPICE NURSE SEEN PATIENT, AND SPOKE TO DAUGHTER, YOANNAALEXEIOLE IS REQUESTING THAT PATIENT IS TO STAY AT THE HOSPITAL, HOSPICE NURSE SPOKE TO GRADUATE TEACHER EDUCATION ON DUTY. GRADUATE TEACHER EDUCATION DECIDED FOR PT TO STAY FOR THE NIGHT AND WILL DECIDE IN THE MORNING WHEN SALESPERSON FLOOR COVERINGS IS AVAILABLE FOR THE TRANSFER.
--- NOTE | 2018-05-15 23:14 | NUR ---
SPOKE WITH DAUGHTER AND REQUESTED NOT TO CHANGED IV SITE AT THIS TIME, WILL DECIDE IN THE MORNING. IV REMAINS PATENT FLUSHES WELL.
--- NOTE | 2018-05-16 00:43 | NUR ---
PATIENT RESTING IN BED, NO DISCOMFORTS NOTED AT THIS TIME, EVEN SHALLOW, BREATHING, REPOSITIONED, CHANGED SUPRAPUBIC CATHETER DRESSING, DAUGHTER IN ROOM, CALL LIGHT AT REACH
--- NOTE | 2018-05-16 05:12 | NUR ---
PATIENT COMFORTAMBLY RESTING IN BED, REMAINS ON O2 AT 2LPM, EVEN SHALLOW BREATHING, DAUGHTER IN ROOM, CALL LIGHT AT REACH
--- NOTE | 2018-05-16 07:00 | NUR ---
SHIFT CHANGE REPORT, PT IN BED SLEEPING/RESTING, NON-RESPONSIVE TO TACTILE AND VERBAL STIMULATION BUT BREATHING EVEN, SHALLOW AND NON-LABORED, AAMILY IN ROOM WILL CONTINUE TO MONITOR.
[2018-05-16 11:19] VITALS: BP 62/34
--- NOTE | 2018-05-16 14:40 | NUR ---
CONDITION REMAINS UNCHANGED, RAMILY AT BEDSIDE.
[2018-05-16 19:51] VITALS: BP 63/48
--- NOTE | 2018-05-16 21:30 | NUR ---
PT ASSESSED, RESP 8/MIN, PT REPOSITIONED W/SOME SOFT MOANING. MEDICATED FOR COMFORT/PAIN. FAMILY AT BEDSIDE. PT REPOSITIONED W/PILLOWS. REDDENED AND BRUISED AREA TO BONY PROMINENCES TO BACK. ENCOURAGED FAMILY TO CALL IF ANY NEEDS ARISES.
--- NOTE | 2018-05-17 01:36 | NUR ---
NO S/O DISTRESS NOTED AT THIS TIME. FAMILY AT BEDSIDE. SONOROUS LUNG SOUNDS.
--- NOTE | 2018-05-17 03:35 | NUR ---
PT RESPIRATIONS EVEN/UNLABORED @16. LUNG SOUNDS CLEAR. PT UNRESPONSIVE TO TACTILE STIMULATION. APPEARS TO BE RESTING COMFORTABLY, FAMILY @BEDSIDE ASLEEP ON ROLL-AWAY. WILL CONTINUE TO MONITOR.
--- NOTE | 2018-05-17 06:35 | NUR ---
PT RESTING W/OUT DISTRESS, RESPIRATIONS EVEN AND UNLABORED @12 PER MINUTE. FAMILY MEMBER ASLEEP AT BEDSIDE.
--- NOTE | 2018-05-17 07:18 | NUR ---
SHIFT REPORT, PT IN LEFT SIDE-LYING POSITION, BREATHING EVEN AND NON-LABORED AT THIS TIME, O2 @ 2L VIA NC IN PLACE, FAMILY IN ROOM.
[2018-05-17 09:59] VITALS: BP 43/25
--- NOTE | 2018-05-17 10:20 | NUR ---
PT RESTING IN RIGHT-SIDE LYING POSITION, DOES NOT SEEM TO BE IN ANY DISTRESS AND DOES NOT APPEAR UNCOMFORTABLE, FAMILY REQUESTING MORPHINE FOR PT AT THIS TIME, ROBBY FROM HOSPICE ROUNDING AND STATED PT DOES NOT SEEM TO BE IN ANY DISTRESS, VITAL SIGNS MEASURED AND RECORDED, WILL CONTINUE TO MONITOR.
--- NOTE | 2018-05-17 17:00 | NUR ---
NO CHANGE IN CONDITION, REPOSITIONED ON RIGHT SIDE.
--- NOTE | 2018-05-17 19:30 | NUR ---
PT RESTING WITH EYES CLOSED. RESPIRATIONS SLOW. PT APPEARS COMFORTABLE ON RIGHT SIDE. IV SITE APPEARS HEALTHY. FAMILY IN ROOM. DISCUSSED MEDICATING PRIOR TO REPOSITIONING, FAMILY VERBALIZED UNDERSTANDING.
[2018-05-17 20:55] VITALS: BP 62/48
--- NOTE | 2018-05-17 20:55 | NUR ---
REPOSITIONED WITH PILLOWS ON BACK/ RIGHT SIDE. PT TOLERATED WELL. VS OBTAINED. FAMILY PRESENT IN ROOM AT THIS TIME.
--- NOTE | 2018-05-18 00:35 | NUR ---
[facility] PROVIDED AND PT REPOSITIONED AT THIS TIME. NO S/S OF PAIN OR DISCOMFORT NOTED. SUPRAPUBIC DRESSING CHANGED. CALL LIGHT WITHIN REACH. FAMILY MEMBER REMAINS IN ROOM. WILL CONTINUE TO MONITOR.
--- NOTE | 2018-05-18 04:57 | NUR ---
PT REPOSITIONED. MEDICATED PRIOR WITH PRN MORPHINE. COPIOUS AMOUNT OF BROWN PURULENT DRAINAGE NOTED COMING FROM AROUND SUPRAPUBIC SITE. PARTIAL BED BATH GIVEN AND LINENS CHANGED AT THIS TIME. IV SITE REMOVED, CATH INTACT. BED IN LOWEST POSITION, FAMILY REMAINS IN ROOM. WILL CONTINUE TO MONITOR.
[2018-05-18 09:30] VITALS: BP 60/35
--- NOTE | 2018-05-18 09:30 | NUR ---
PT MEDICATED & REPOSITION, BACK RUB PROVIDED; UNRESPONSIVE, GENERALIZED BRUISING NOTED TO SKIN: LEGS AND ARM ELEVATED FOR COMFORT; VELÁZQUEZ INTACT; FAMILY AT BEDSIDE;
--- NOTE | 2018-05-18 10:00 | NUR ---
LUPILLO JENNINGS FROM [facility] [phone] CALLED UP UPDATE ON PT; STATED A NURSE WILL FOLLOW UP SOMETIME TODAY.
--- NOTE | 2018-05-18 11:00 | NUR ---
PT APPEARS TO BE COMFORTABLE, NO DISTRESS NOTED; RESP 8 AT THIS TIME; SON REMAIN AT BEDSIDE.
--- NOTE | 2018-05-18 12:39 | NUR ---
SUZANNE BENÍTEZ [facility] AT BEDSIDE.
--- NOTE | 2018-05-18 13:31 | NUR ---
REPOSITION RT SIDE, BACK RUB PROVIDED; MEDICATED, RESP 3; WILL CONTINUE TO MONITOR.
--- NOTE | 2018-05-18 15:39 | NUR ---
PT APPEARS TO BE SLEEPING, NO DISCOMFORT NOTED; FAMILY AT BEDSIDE; WILL CONTINUE TO MONITOR.
--- NOTE | 2018-05-18 16:46 | NUR ---
PT REPOSITION, MEDICATED WITH MORPHINE; RESP 5; DRESSING TO SUPRAPUBIC CATH REPLACE; BACK RUB PROVIDED; LEGS AND ARM ELEVATED ON PILLOW/PLANKET. WILL CONTINUE TO MONITOR.
--- NOTE | 2018-05-18 21:25 | NUR ---
PT IS IN BED, RESPIRATIONS @8/MIN, NO S/O DISTRESS AT THIS TIME. POC DISCUSSED W/PT FAMILY.
--- NOTE | 2018-05-18 23:19 | NUR ---
V/S ASSESSED AND PT MEDICATED ORDERS PROVIDE AND PT REPOSITIONED W/PILLOWS. DAUGHTER AT BEDSIDE. NO STOOL AT THIS TIME, SUPRAPUBIC CATHETER DRESSING CDI,STRAP IN PLACE TO LEFT LEG, PATENT DRAINING THICK DARK BROWN/PURPLE URINE. DAUGHTER ENCOURAGED TO CALL IF ANY OTHER NEEDS ARISE.
[2018-05-18 23:42] VITALS: BP 60/36
--- NOTE | 2018-05-19 02:30 | NUR ---
PT SLEEPING, NO S/O DISTRESS NOTED, NO TACTILE RESPONSE, RESP 6/MIN.
[2018-05-19 04:28] VITALS: BP 62/34
--- NOTE | 2018-05-19 04:37 | NUR ---
PT V/S ASSESSED AND REPOSITIONED W/PILLOWS AND CHECKED FOR STOOL. PT UNRESPONSIVE TO TACTILE STIMULATION. RESPIRATIONS @6/MIN BP 62/34,HR72, 02SAT 100% ON 02NC@2L. DAUGHTER AT BEDSIDE ASKED FOR ME TO HOLD ON MEDICATING PT, SHE REPORTED FEELING LIKE PT WAS COMFORTABLE. WILL CONTINUE TO MONITOR.
[2018-05-19 04:50] VITALS: BP 113/53
--- NOTE | 2018-05-19 06:47 | NUR ---
INCORRECT V/S ENTERED ON PT. @9290, SOLAR SALES ESTIMATOR IS UNABLE TO CORRECT.
--- NOTE | 2018-05-19 07:27 | NUR ---
REPORT RECEIVED FROM DAVIS; PT APPEARS TO BE SLEEPING RESP 4/MIN; DAUGHTER WAS ASKED IF SHE WANTS US TO CONTINUE TURNING AND MEDICATE PT Q4 HR , SHE STATED "LET ME WAIT TILL MY BROTHERS COMES"
--- NOTE | 2018-05-19 08:35 | NUR ---
ELIER BENÍTEZ [facility] AT BEDSIDE.
[2018-05-19 09:30] VITALS: BP 54/32
--- NOTE | 2018-05-19 09:30 | NUR ---
ASSESSMENT COMPLETED; DAUGHTER AGREED TO MEDICATE AND REPOSITION PT; VITALS OBTAINED; MEDICATED PRIOR TO BATH AND REPOSITION; LINEN CHANGE; DRESSING TO SUPRAPUBIC CATH CHANGED; WILL CONTINUE TO MONITOR.
--- NOTE | 2018-05-19 11:28 | NUR ---
PT APPEARS TO BE COMFORTABLE, NO DISTRESS NOTED; RESP RANGE FROM 4/5 PER MIN, ON ROOM AIR; MULTIPLE FAMILES AT BEDSIDE.
--- NOTE | 2018-05-19 12:56 | NUR ---
RESP 8/MIN; REPOSITION ON L SIDE, MEDICATED FOR COMFORT; SUPRAPUBIC DRESSING CHANGED; WILL CONTINUE TO MONITOR.
--- NOTE | 2018-05-19 14:00 | NUR ---
KALYN BENÍTEZ [facility] AT BEDSIDE
--- NOTE | 2018-05-19 17:33 | NUR ---
PT REPOSITION, MEDICATED WITH MORPHINE; DRESSING TO SUPRAPUBIC CDI; NO CHANGES NOTED; FAMILY AT BED SIDE;
--- NOTE | 2018-05-19 19:20 | NUR ---
PT IN BED, NO S/O DISTRESS NOTED AT THIS TIME. BREATHING NON-LABORED AND REGULAR AT THIS TIME. FAMILY AT BEDSIDE. POC DISCUSSED, WILL FOLLOW-UP WITH MEDICATIONS AND REPOSITIONING.
[2018-05-19 20:19] VITALS: BP 55/26
--- NOTE | 2018-05-19 21:49 | NUR ---
PT MEDICATED ORDERS PROVIDE FOR COMFORT WHEN TURNING. POC DISCUSSED W/FAMILY. RESP ARE REGULAR NON-LABORED @20/MIN. SUPRAPUBIC CATHETER IS DRAINING DARK HALL/PURPLE URINE. WILL PROVIDE CATHETER CARE UPON TURNING.
--- NOTE | 2018-05-20 01:59 | NUR ---
PT MEDICATED FOR COMFORT CARE FOR REPOSITIONING/TURNING AND NIDIA-CARE. FAMILY ASLEEP AT BEDSIDE. PT RESPIRATIONS ARE AT 16 PRIOR TO MEDICATION ADMINISTRATION. WILL CONTINUE TO MONITOR.
[2018-05-20 06:10] VITALS: BP 52/27
--- NOTE | 2018-05-20 06:20 | NUR ---
PT MEDICATED ORDERS PROVIDE FOR COMFORT CARE, REPOSITIONED AND V/S ASSESSED. BP 52/27, RESP 15, HR 80/MANUAL RADIAL PULSE. BREATHING MILDLY LABORED DEEP BREATHS. NO OTHER S/O DISTRESS. DAUGHTER AT BEDSIDE SLEEPING. WILL CONTINUE TO MONITOR.
[2018-05-20 09:43] VITALS: BP 43/26
--- NOTE | 2018-05-20 09:57 | NUR ---
ASSESSMENT COMPLETED; VITALS OBTAINED; REPOSITION ON LT SIDE; BACK RUB GIVEN; ORAL CARE DONE; DRERSSING CHANGE TO SUPRAPUBIC CATH DONE; MEDICATED PRIOR TO TURNING; KALYN BENÍTEZ [facility] AT BED SIDE; WILL CONTINUE TO MONITOR.
--- NOTE | 2018-05-20 12:06 | NUR ---
PT APPEARS TO BE COMFORTABLE; RESP 8/MIN; FAMILY AT BEDSIDE; WILL CONTINUE TO MONITOR.
--- NOTE | 2018-05-20 13:47 | NUR ---
REPOSITION PT FOR COMFORT, MEDICATED PRIOR TO TURNING; NOW ON RT SIDE; RES 8/MIN; NO CHANGES NOTED; DRESSING CDI; SON AT BED SIDE; WILL CONTINUE TO MONITOR.
--- NOTE | 2018-05-20 17:31 | NUR ---
MEDICATED PT AND REPOSITION FOR COMFORT; RESP 13/MIN; LOOKS COMFORTABLE; FAMILY AT BEDSIDE;
--- NOTE | 2018-05-20 22:56 | NUR ---
V/S ASSESSED, PT MEDICATED FOR COMFORT, REPOSITIONING, ORAL CARE PROVIDED, SUPRAPUBIC CATHETER CARE PROVIDED AND DRESSING CHANGED, STRAP IN PLACE TO RIGHT UPPER THIGH. PT TOLERATED WELL, NO RESPONSE TO TACTILE STIMULATION BUT CLAMPING OF MOUTH UPON ADMINISTRATION OF MEDICATIONS. BREATHING APPEARS DEEP AND MILDLY LABORED BREATHES AT 9 RESP/MIN. DAUGHTER IS AT BEDSIDE AND POC DISCUSSED W/HER. PT POSITIONED W/PILLOWS FOR COMFORT OF PRESSURE POINTS.
[2018-05-20 22:58] VITALS: BP 43/27
--- NOTE | 2018-05-21 02:30 | NUR ---
PT RESPIRATIONS ARE SHALLOW AND 16/MIN. PT MEDICATED FOR COMFORT, TOLERATED ADMINISTRATION OF MEDICATION WELL. REPOSITIONED FOR PRESSURE POINTS. FAMILY ASLEEP AT BEDSIDE.
--- NOTE | 2018-05-21 06:20 | NUR ---
PT MEDICATED ORDERS PROVIDE FOR COMFORT,REPOSITIONING, ORAL CARE PROVIDED.
[2018-05-21 10:00] VITALS: BP 76/26
--- NOTE | 2018-05-21 12:25 | NUR ---
NO CHANGES NOTED; RESP 16/MIN; LOOKS COMFORTABLE
--- NOTE | 2018-05-21 16:30 | NUR ---
PT SEEMS COMFORTABLE; FAMILY AT BEDSIDE;
--- NOTE | 2018-05-21 19:10 | NUR ---
RECEIVED REPORT FROM NURSE BRAN, PATIENT APPEARS TO BE COMFORTALY RESTING IN BED, EYES CLOSED, FAMILY IN ROOM CALL LIGHT AT REACH.
--- NOTE | 2018-05-21 20:00 | NUR ---
PATIENT RESTING IN BED, APPEARS COMFORTABLE, PATIENT REPOSITIONED, SUPRAPUBIC CATHER DRESSING CHANGE, PRN MORPHINE GIVEN FOR COMFORT. FAMIY IN ROOM.
[2018-05-21 20:09] VITALS: BP 52/30
--- NOTE | 2018-05-22 05:37 | NUR ---
PAATIENT RESTING IN BED, NO DISCOMFORTS NOTED, EVEN SHALLOW BREATHING, PATIENT REPOSITIONED, DAUGHTER IN ROOM,
--- NOTE | 2018-05-22 07:13 | NUR ---
AT 0700 ANNEALING OVEN OPERATOR CALLED AMMUNITION STOREKEEPER, PATIENT NO SIGNS OF LIFE, NO PULSE, NO RESPIRATION, DAY SHIFT NURSE MADE AWARE.
--- NOTE | 2018-05-22 07:15 | NUR ---
AT [id number] SPOKE TO ASHLEY OF [facility] REGARDING PATIENT .
--- NOTE | 2018-05-22 07:24 | NUR ---
STICKER MACHINE OPERATOR AND [employer] CALLED. CALLED WELL. NO RESPONSE AT THIS TIME. WILL CONTINUE TO CALL.
--- NOTE | 2018-05-22 07:45 | NUR ---
CALLED AND ANSWERED.
--- NOTE | 2018-05-22 07:47 | NUR ---
POST MORTEM CARE PROVIDED, FAMILY IN ROOM, SPOKED WITH PATIENT'S DAUGHTER THAT FINANCIAL COMPLIANCE MANAGER MAY CALL [facility].
--- NOTE | 2018-05-22 07:58 | NUR ---
SPOKE TO LESLI OF [facility], WILL SEND SOMEONE TO SURFACE HYDROLOGIST THE .
--- NOTE | 2018-05-22 08:07 | NUR ---
LIFEL[employer] COORDINATORMAYELIN CALLED REGARDING PT.
--- NOTE | 2018-05-22 08:32 | NUR ---
[facility] IN TO TRANSPORT PT
--- NOTE | 2018-05-22 12:01 | NUR ---
I spoke with Cherelle from [facility] matress service to confirm medicinal plant picker. She confirmed the matress to be picked up and the confirmation number is #[id number]. I spoke with her at 12:00 pm.
== END 2018-05-22 08:35 | disposition expired | DRG 641 ==
LOC: MS2 15:30
PROVIDERS: ADMIT Internal Medicine Geriatric Medicine; ATTEND Internal Medicine Geriatric Medicine
DX: R63.0 Anorexia (principal); N39.0 Urinary tract infection, site not specified; Z51.5 Encounter for palliative care; Z66 Do not resuscitate; I12.9 Hypertensive chronic kidney disease with stage 1 through stage 4 chronic kidney disease, or unspecified chronic kidney disease; N18.9 Chronic kidney disease, unspecified; E03.9 Hypothyroidism, unspecified; M06.9 Rheumatoid arthritis, unspecified; M19.90 Unspecified osteoarthritis, unspecified site; M24.50 Contracture, unspecified joint; I25.10 Atherosclerotic heart disease of native coronary artery without angina pectoris; F03.90 Unspecified dementia, unspecified severity, without behavioral disturbance, psychotic disturbance, mood disturbance, and anxiety; K21.9 Gastro-esophageal reflux disease without esophagitis; K29.70 Gastritis, unspecified, without bleeding; K58.9 Irritable bowel syndrome, unspecified; L98.8 Other specified disorders of the skin and subcutaneous tissue; M79.7 Fibromyalgia; B95.2 Enterococcus as the cause of diseases classified elsewhere; Z87.440 Personal history of urinary (tract) infections; Z86.73 Personal history of transient ischemic attack (TIA), and cerebral infarction without residual deficits
CPT/HCPCS: J2060